=== PATIENT | male | born 1955 | race Caucasian/White ===

== ENCOUNTER 2024-03-26 13:13 | Inpatient (IN) | payer MEDICARE ==
[2024-03-26] MEDS: Ondansetron 4 MG/2 ML SDV IVPUSH ONE (13:39)
[2024-03-26 13:40] LABS: BASOPHILS PERCENT AUTO 0.2 % (0.2-1.2); EOSINOPHILS ABSOLUTE AUTO 0.1 x10^3/uL (0.0-0.5); EOSINOPHILS PERCENT AUTO 1.5 % (0.0-4.0); HEMATOCRIT 44.8 % (40.0-52.0); HEMOGLOBIN 15.6 g/dL (14.0-18.0); IMMATURE GRAN ABSOLUTE AUTO 0.02 x10^3/uL (0.00-0.07); LYMPHOCYTES ABSOLUTE AUTO 0.7 x10^3/uL (1.0-4.8); MEAN CORPUSCULAR HEMOGLOBIN 32.9 pg (26.0-32.0); MEAN CORPUSCULAR HGB CONC 34.8 g/dL (32.0-36.0); MEAN CORPUSCULAR VOLUME 94.5 fL (78.0-93.0); MONOCYTES PERCENT AUTO 18.8 % (2.0-11.0); NEUTROPHILS ABSOLUTE AUTO 3.5 x10^3/uL (1.8-7.7); NEUTROPHILS PERCENT AUTO 66.1 % (50.0-80.0); PLATELET COUNT,PLT 227 x10^3/uL (130-400); RED BLOOD CELL COUNT 4.74 x10^6/uL (4.5-6.0); WHITE BLOOD CELL COUNT,WBC 5.2 x10^3/uL (4.0-10.0)
[2024-03-26 13:53] LABS: APPEARANCE,URINE CLEAR (CLEAR); BILIRUBIN,URINE SMALL (NEGATIVE); COLOR,URINE AMBER (YELLOW); GLUCOSE,URINE NEGATIVE (NEGATIVE); KETONES,URINE NEGATIVE (NEGATIVE); LEUKOCYTE ESTERASE,URINE NEGATIVE (NEGATIVE); NITRITE,URINE NEGATIVE (NEGATIVE); OCCULT BLOOD,URINE NEGATIVE (NEGATIVE); PH,URINE 5.5 (5.0-8.0); PROTEIN,URINE 100 mg/dL (NEGATIVE)
[2024-03-26 13:54] LABS: A/G RATIO 0.84; ALBUMIN 3.2 g/dL (3.4-5.0); ANION GAP 14.5 mmol/L (5-15); BILIRUBIN TOTAL 0.6 mg/dL (0.2-1.0); CALCIUM 8.4 mg/dL (8.5-10.1); CREATININE 1.3 mg/dL (0.70-1.30); EST CRCL DRUG DOSING (CG) 61.35 mL/min; POTASSIUM,K 3.5 mmol/L (3.5-5.1)
[2024-03-26 14:07] LABS: BACTERIA,URINE RARE /HPF (NOT SEEN); MUCUS,URINE OCCASIONAL /LPF (NOT SEEN); RBC,URINE 0-5 /HPF (NOT SEEN); WBC,URINE 0-5 /HPF (NOT SEEN)
[2024-03-26] MEDS: Iopamidol 612 MG/ML 100 ML Bottle IVPUSH ONE (15:30)
[2024-03-26] MEDS: Sodium Chloride 0.9% 1,000 ML IV ONE ×2 (16:02→17:41)
[2024-03-26] MEDS: Ondansetron 4 MG/2 ML SDV IV PRN (17:09)
[2024-03-26 17:20] LABS: LACTIC ACID 2.8 mmol/L (0.4-2.0)
[2024-03-26] MEDS: Lidocaine 4% 5 ML Amp TOP ONE (17:39)
[2024-03-26] MEDS: Sodium Chloride 0.9% 1,000 ML IV SCH (18:49)
[2024-03-26] MEDS: lamoTRIgine 100 MG Tab PO SCH (22:08)
[2024-03-26] MEDS: OLANZapine 10 MG Tab PO SCH (22:08)
[2024-03-27] MEDS: Levothyroxine 150 MCG Tab PO SCH (06:34)
[2024-03-27 07:01] LABS: HEMATOCRIT 41.6 % (40.0-52.0); HEMOGLOBIN 14.2 g/dL (14.0-18.0); MEAN CORPUSCULAR HEMOGLOBIN 32.8 pg (26.0-32.0); MEAN CORPUSCULAR HGB CONC 34.1 g/dL (32.0-36.0); MEAN CORPUSCULAR VOLUME 96.1 fL (78.0-93.0); RED BLOOD CELL COUNT 4.33 x10^6/uL (4.5-6.0); WHITE BLOOD CELL COUNT,WBC 4.6 x10^3/uL (4.0-10.0)
[2024-03-27 07:07] LABS: A/G RATIO 0.81; ALBUMIN 2.6 g/dL (3.4-5.0); BILIRUBIN TOTAL 0.5 mg/dL (0.2-1.0); CALCIUM 7.4 mg/dL (8.5-10.1); CREATININE 1.2 mg/dL (0.70-1.30); EST CRCL DRUG DOSING (CG) 66.46 mL/min; POTASSIUM,K 3.4 mmol/L (3.5-5.1); PROTEIN TOTAL,TP 5.8 g/dL (6.4-8.2)
[2024-03-27 07:13] LABS: ANION GAP 11.4 mmol/L (5-15)
[2024-03-27] MEDS: Potassium Chloride 10 MEQ Tab.ER PO ONE (09:37)
[2024-03-27] MEDS: Donepezil 10 MG Tab PO SCH (09:37)
[2024-03-27] MEDS: atorvaSTATin 10 MG Tab PO SCH (09:37)
[2024-03-27] MEDS: Enoxaparin 40 MG/0.4 ML Syringe SUBCUT SCH (14:47)
[2024-03-27] MEDS: Lidocaine 4% 5 ML Amp TOP ONE (21:01)
[2024-03-28 07:01] LABS: HEMATOCRIT 39.9 % (40.0-52.0); HEMOGLOBIN 12.9 g/dL (14.0-18.0); MEAN CORPUSCULAR HEMOGLOBIN 31.9 pg (26.0-32.0); MEAN CORPUSCULAR HGB CONC 32.3 g/dL (32.0-36.0); MEAN CORPUSCULAR VOLUME 98.8 fL (78.0-93.0); RED BLOOD CELL COUNT 4.04 x10^6/uL (4.5-6.0)
[2024-03-28 07:21] LABS: A/G RATIO 0.77; ALBUMIN 2.3 g/dL (3.4-5.0); BILIRUBIN TOTAL 0.5 mg/dL (0.2-1.0); CALCIUM 7.4 mg/dL (8.5-10.1); EST CRCL DRUG DOSING (CG) 79.76 mL/min; POTASSIUM,K 3.6 mmol/L (3.5-5.1); PROTEIN TOTAL,TP 5.3 g/dL (6.4-8.2)
[2024-03-28 07:22] LABS: ANION GAP 9.6 mmol/L (5-15)
[2024-03-28] MEDS ORDERED: Phenol/Sodium Phenolate Spray 180 ML Bottle PO PRN (22:18)
[2024-03-29] MEDS: Lidocaine 4% 5 ML Amp TOP ONE (01:14)
[2024-03-29 06:59] LABS: HEMATOCRIT 37.7 % (40.0-52.0); HEMOGLOBIN 12.5 g/dL (14.0-18.0); MEAN CORPUSCULAR HEMOGLOBIN 32.6 pg (26.0-32.0); MEAN CORPUSCULAR HGB CONC 33.2 g/dL (32.0-36.0); MEAN CORPUSCULAR VOLUME 98.2 fL (78.0-93.0); RED BLOOD CELL COUNT 3.84 x10^6/uL (4.5-6.0); WHITE BLOOD CELL COUNT,WBC 5.1 x10^3/uL (4.0-10.0)
[2024-03-29 07:21] LABS: A/G RATIO 0.72; ALBUMIN 2.3 g/dL (3.4-5.0); BILIRUBIN TOTAL 0.4 mg/dL (0.2-1.0); CALCIUM 8.1 mg/dL (8.5-10.1); CREATININE 1.1 mg/dL (0.70-1.30); EST CRCL DRUG DOSING (CG) 72.51 mL/min; POTASSIUM,K 3.4 mmol/L (3.5-5.1); PROTEIN TOTAL,TP 5.5 g/dL (6.4-8.2)
[2024-03-29 07:23] LABS: ANION GAP 9.4 mmol/L (5-15)
[2024-03-29] MEDS ORDERED: Polyethylene Glycol 3350 Powder 17 GM Packet PO SCH (09:00)
[2024-03-29] MEDS ORDERED: Sennosides 8.6 MG Tab PO SCH (09:00)
[2024-03-29] MEDS: Magnesium Hydroxide 400 MG/5 ML Susp 30 ML Cup PO PRN (10:40)
[2024-03-29] MEDS: Sennosides 8.6 MG Tab PO SCH (10:42)
[2024-03-29] MEDS: Polyethylene Glycol 3350 Powder 17 GM Packet PO SCH (10:44)
[2024-03-29] MEDS: Iopamidol 612 MG/ML 100 ML Bottle IVPUSH ONE (13:15)
[2024-03-29] MEDS: Dextrose 5% in Water 1,000 ML IV SCH (16:38)
[2024-03-31 08:11] LABS: BASOPHILS PERCENT AUTO 0.3 % (0.2-1.2); EOSINOPHILS ABSOLUTE AUTO 0.8 x10^3/uL (0.0-0.5); HEMATOCRIT 38.6 % (40.0-52.0); HEMOGLOBIN 13.2 g/dL (14.0-18.0); IMMATURE GRAN ABSOLUTE AUTO 0.26 x10^3/uL (0.00-0.07); LYMPHOCYTES ABSOLUTE AUTO 1.2 x10^3/uL (1.0-4.8); LYMPHOCYTES PERCENT AUTO 16.5 % (25.0-50.0); MEAN CORPUSCULAR HEMOGLOBIN 32.5 pg (26.0-32.0); MEAN CORPUSCULAR HGB CONC 34.2 g/dL (32.0-36.0); MEAN CORPUSCULAR VOLUME 95.1 fL (78.0-93.0); MONOCYTES ABSOLUTE AUTO 0.5 x10^3/uL (0.0-0.8); MONOCYTES PERCENT AUTO 6.7 % (2.0-11.0); NEUTROPHILS ABSOLUTE AUTO 4.5 x10^3/uL (1.8-7.7); NEUTROPHILS PERCENT AUTO 61.9 % (50.0-80.0); PLATELET COUNT,PLT 148 x10^3/uL (130-400); RED BLOOD CELL COUNT 4.06 x10^6/uL (4.5-6.0); WHITE BLOOD CELL COUNT,WBC 7.3 x10^3/uL (4.0-10.0)
[2024-03-31 08:21] LABS: A/G RATIO 0.71; ALBUMIN 2.4 g/dL (3.4-5.0); BILIRUBIN TOTAL 0.5 mg/dL (0.2-1.0); CALCIUM 8.3 mg/dL (8.5-10.1); EST CRCL DRUG DOSING (CG) 79.76 mL/min; POTASSIUM,K 3.3 mmol/L (3.5-5.1); PROTEIN TOTAL,TP 5.8 g/dL (6.4-8.2)
[2024-03-31 08:22] LABS: ANION GAP 10.3 mmol/L (5-15)
[2024-03-31] MEDS: Potassium Chloride 20 MEQ Tab.ER PO SCH (11:32)
[2024-03-31] MEDS: Metoclopramide 10 MG/2 ML SDV IVPUSH PRN (17:08)
[2024-03-31] MEDS: Iopamidol 612 MG/ML 100 ML Bottle IVPUSH ONE (21:16)
[2024-04-01] MEDS: Pantoprazole 40 MG Vial IVPUSH SCH (00:36)
[2024-04-01 00:40] LABS: CALCIUM 8.8 mg/dL (8.5-10.1); CREATININE 1.1 mg/dL (0.70-1.30); EST CRCL DRUG DOSING (CG) 72.51 mL/min; POTASSIUM,K 3.9 mmol/L (3.5-5.1)
[2024-04-01 00:42] LABS: ANION GAP 9.9 mmol/L (5-15)
[2024-04-01] MEDS: Sodium Chloride 0.9% 10 ML Syringe FLUSH PRN (00:43)
[2024-04-01 00:44] LABS: BASOPHILS PERCENT AUTO 0.4 % (0.2-1.2); EOSINOPHILS ABSOLUTE AUTO 0.6 x10^3/uL (0.0-0.5); EOSINOPHILS PERCENT AUTO 7.8 % (0.0-4.0); HEMATOCRIT 42.3 % (40.0-52.0); HEMOGLOBIN 14.8 g/dL (14.0-18.0); IMMATURE GRAN ABSOLUTE AUTO 0.18 x10^3/uL (0.00-0.07); LYMPHOCYTES ABSOLUTE AUTO 1.1 x10^3/uL (1.0-4.8); LYMPHOCYTES PERCENT AUTO 13.3 % (25.0-50.0); MEAN CORPUSCULAR HEMOGLOBIN 32.5 pg (26.0-32.0); MEAN CORPUSCULAR VOLUME 92.8 fL (78.0-93.0); MONOCYTES ABSOLUTE AUTO 0.4 x10^3/uL (0.0-0.8); MONOCYTES PERCENT AUTO 5.4 % (2.0-11.0); NEUTROPHILS ABSOLUTE AUTO 5.7 x10^3/uL (1.8-7.7); NEUTROPHILS PERCENT AUTO 70.9 % (50.0-80.0); PLATELET COUNT,PLT 182 x10^3/uL (130-400); RED BLOOD CELL COUNT 4.56 x10^6/uL (4.5-6.0)
[2024-04-01] MEDS: Piperacillin/Tazobactam 4.5 GM in Sodium Chloride 0.9% 100 ML IV SCH (00:46)
[2024-04-01] MEDS: Lactated Ringers 1,000 ML IV SCH (03:58)
[2024-04-01 06:53] LABS: BASOPHILS PERCENT AUTO 0.4 % (0.2-1.2); EOSINOPHILS ABSOLUTE AUTO 0.8 x10^3/uL (0.0-0.5); EOSINOPHILS PERCENT AUTO 10.7 % (0.0-4.0); HEMATOCRIT 40.2 % (40.0-52.0); HEMOGLOBIN 13.9 g/dL (14.0-18.0); IMMATURE GRAN ABSOLUTE AUTO 0.19 x10^3/uL (0.00-0.07); LYMPHOCYTES PERCENT AUTO 13.3 % (25.0-50.0); MEAN CORPUSCULAR HEMOGLOBIN 32.5 pg (26.0-32.0); MEAN CORPUSCULAR HGB CONC 34.6 g/dL (32.0-36.0); MEAN CORPUSCULAR VOLUME 93.9 fL (78.0-93.0); MONOCYTES ABSOLUTE AUTO 0.4 x10^3/uL (0.0-0.8); MONOCYTES PERCENT AUTO 4.9 % (2.0-11.0); NEUTROPHILS ABSOLUTE AUTO 5.3 x10^3/uL (1.8-7.7); NEUTROPHILS PERCENT AUTO 68.2 % (50.0-80.0); PLATELET COUNT,PLT 157 x10^3/uL (130-400); RED BLOOD CELL COUNT 4.28 x10^6/uL (4.5-6.0); WHITE BLOOD CELL COUNT,WBC 7.7 x10^3/uL (4.0-10.0)
[2024-04-01 07:12] LABS: A/G RATIO 0.68; ALBUMIN 2.5 g/dL (3.4-5.0); ANION GAP 8.8 mmol/L (5-15); BILIRUBIN TOTAL 0.6 mg/dL (0.2-1.0); CALCIUM 8.7 mg/dL (8.5-10.1); CREATININE 1.2 mg/dL (0.70-1.30); EST CRCL DRUG DOSING (CG) 66.46 mL/min; POTASSIUM,K 3.8 mmol/L (3.5-5.1); PROTEIN TOTAL,TP 6.2 g/dL (6.4-8.2)
[2024-04-01] MEDS: Enoxaparin 40 MG/0.4 ML Syringe SUBCUT SCH (12:58)
[2024-04-02 06:48] LABS: BASOPHILS PERCENT AUTO 0.3 % (0.2-1.2); EOSINOPHILS PERCENT AUTO 16.6 % (0.0-4.0); HEMATOCRIT 36.9 % (40.0-52.0); HEMOGLOBIN 12.4 g/dL (14.0-18.0); IMMATURE GRAN ABSOLUTE AUTO 0.12 x10^3/uL (0.00-0.07); LYMPHOCYTES ABSOLUTE AUTO 0.8 x10^3/uL (1.0-4.8); LYMPHOCYTES PERCENT AUTO 13.6 % (25.0-50.0); MEAN CORPUSCULAR HEMOGLOBIN 32.2 pg (26.0-32.0); MEAN CORPUSCULAR HGB CONC 33.6 g/dL (32.0-36.0); MEAN CORPUSCULAR VOLUME 95.8 fL (78.0-93.0); MONOCYTES ABSOLUTE AUTO 0.3 x10^3/uL (0.0-0.8); MONOCYTES PERCENT AUTO 5.3 % (2.0-11.0); NEUTROPHILS ABSOLUTE AUTO 3.6 x10^3/uL (1.8-7.7); NEUTROPHILS PERCENT AUTO 62.1 % (50.0-80.0); PLATELET COUNT,PLT 133 x10^3/uL (130-400); RED BLOOD CELL COUNT 3.85 x10^6/uL (4.5-6.0); WHITE BLOOD CELL COUNT,WBC 5.8 x10^3/uL (4.0-10.0)
[2024-04-02 07:11] LABS: A/G RATIO 0.63; ALBUMIN 2.2 g/dL (3.4-5.0); ANION GAP 9.1 mmol/L (5-15); BILIRUBIN TOTAL 0.6 mg/dL (0.2-1.0); CALCIUM 8.1 mg/dL (8.5-10.1); CREATININE 1.2 mg/dL (0.70-1.30); EST CRCL DRUG DOSING (CG) 66.46 mL/min; POTASSIUM,K 4.1 mmol/L (3.5-5.1); PROTEIN TOTAL,TP 5.7 g/dL (6.4-8.2)
[2024-04-03 08:38] LABS: HEMATOCRIT 35.5 % (40.0-52.0); HEMOGLOBIN 12.2 g/dL (14.0-18.0); MEAN CORPUSCULAR HEMOGLOBIN 32.5 pg (26.0-32.0); MEAN CORPUSCULAR HGB CONC 34.4 g/dL (32.0-36.0); MEAN CORPUSCULAR VOLUME 94.7 fL (78.0-93.0); RED BLOOD CELL COUNT 3.75 x10^6/uL (4.5-6.0); WHITE BLOOD CELL COUNT,WBC 5.5 x10^3/uL (4.0-10.0)
[2024-04-03 08:59] LABS: A/G RATIO 0.66; ALBUMIN 2.3 g/dL (3.4-5.0); ANION GAP 11.2 mmol/L (5-15); BILIRUBIN TOTAL 0.6 mg/dL (0.2-1.0); CALCIUM 8.3 mg/dL (8.5-10.1); CREATININE 1.1 mg/dL (0.70-1.30); EST CRCL DRUG DOSING (CG) 72.51 mL/min; POTASSIUM,K 4.2 mmol/L (3.5-5.1); PROTEIN TOTAL,TP 5.8 g/dL (6.4-8.2)
[2024-04-03] MEDS: Iopamidol 612 MG/ML 100 ML Bottle IVPUSH ONE (10:16)
[2024-04-03] MEDS: Metoclopramide 10 MG/2 ML SDV IVPUSH SCH (12:04)
[2024-04-04] MEDS: Metoclopramide 10 MG Tab PO SCH (11:57)
== END 2024-04-05 13:28 | DRG 389 ==
LOC: VM.ED 13:13 → VM.MS 16:20
PROVIDERS: ADMIT Family Medicine; ATTEND Family Medicine
PROC: 0D9670Z Drainage of Stomach with Drainage Device, Via Natural or Artificial Opening (ICD-10-PCS; principal; 2024-03-27)
DX: K56.609 Unspecified intestinal obstruction, unspecified as to partial versus complete obstruction (principal); E87.0 Hyperosmolality and hypernatremia; E87.20 Acidosis, unspecified; F02.84 Dementia in other diseases classified elsewhere, unspecified severity, with anxiety; K29.60 Other gastritis without bleeding; E11.9 Type 2 diabetes mellitus without complications; G47.33 Obstructive sleep apnea (adult) (pediatric); E03.9 Hypothyroidism, unspecified; G30.9 Alzheimer's disease, unspecified; E78.00 Pure hypercholesterolemia, unspecified; K59.09 Other constipation; K21.9 Gastro-esophageal reflux disease without esophagitis; E86.0 Dehydration; R14.0 Abdominal distension (gaseous); E87.6 Hypokalemia; Z66 Do not resuscitate; Z91.030 Bee allergy status; Z79.1 Long term (current) use of non-steroidal anti-inflammatories (NSAID); Z87.820 Personal history of traumatic brain injury; Z85.46 Personal history of malignant neoplasm of prostate; Z79.899 Other long term (current) drug therapy; Z79.02 Long term (current) use of antithrombotics/antiplatelets
CPT/HCPCS: 36415; 74018; 74160; 74177; 80048; 80053; 81001; 83605; 85025; 85027; 87070; 96374; 97161-GP; 99232; 99284; 99285-25; A9270-GY; C1758; J1650; J2405; J2470; J2543; J2765; J3490; J7030; J7060; J7120; Q3014; Q9967